=== PATIENT | female | born 1990 | race African-American/Black ===

== ENCOUNTER 2016-11-22 09:34 | Emergency (ER) | payer OTHER | END 2016-11-22 10:04 | disposition home or self-care (01) | LOC: NAV ERS 09:34 | DX: O99.513 Diseases of the respiratory system complicating pregnancy, third trimester (principal); J11.1 Influenza due to unidentified influenza virus with other respiratory manifestations; O16.3 Unspecified maternal hypertension, third trimester; O99.343 Other mental disorders complicating pregnancy, third trimester; F32.9 Major depressive disorder, single episode, unspecified; F41.9 Anxiety disorder, unspecified; Z87.891 Personal history of nicotine dependence; Z3A.30 30 weeks gestation of pregnancy | CPT/HCPCS: 99283 ==

== ENCOUNTER 2017-01-27 20:32 | Emergency (ER) | payer OTHER ==
[2017-01-27 21:33] LABS: Bilirubin Negative (Negative); Blood, Urine Negative (Negative); Clarity Clear (Clear); Glucose, Urine (Dipstick) Negative (Negative); Leukocyte Trace (Negative); Nitrite Negative (Negative); Protein, Urine (Dipstick) Negative (Neg-Trace); Urobilinogen 0.2 mg/dL (0.2-1.0)
[2017-01-27 21:35] LABS: #Basophils 0.1 thou/uL (0.0-0.2); #Eosinphils 0.6 thou/uL (0.0-0.7); #Lymphocytes 2.7 thou/uL (1.20-3.40); #Monocytes 0.6 thou/uL (0.11-0.59); %Basophils 1.1 % (0.0-1.0); %Eosinophils 6.2 % (0.0-10.0); %Lymphocytes 26.5 % (21.0-51.0); %Neutrophils 60.3 % (42.0-75.0); Hemoglobin 13.2 g/dL (12.0-16.0); Mean Corpuscular HGB CONC 33.5 g/dL (32.0-36.0); Mean Corpuscular Hemoglobin 31.9 pg (27.0-31.0); Mean Corpuscular Volume 95.2 fl (81.0-99.0); Mean Platelet Volume 7.9 fL (7.4-10.4); Platelet Count 251 thou/uL (130-400); Red Blood Cell (RBC) Count 4.13 mill/uL (4.20-5.40)
[2017-01-27 21:38] LABS: Pregnancy Test - Urine (BHCG) NEGATIVE (NEGATIVE); Pregu Control Bar Appear? YES (CONTROL BAR)
--- NOTE | 2017-01-27 21:40 | RAD ---
PORTABLE CHEST 01/27/17 HISTORY: Cough. The heart size and mediastinum are within normal limits. The lungs are clear of infiltrates. No sign ificant bony finding. IMPRESSION: No active intrathoracic disease. POS: [facility]
[2017-01-27 21:49] LABS: Bacteria/HPF Rare-Few HPF (None Seen); RBC/HPF None Seen HPF (0-3); WBC/HPF 0-3 HPF (0-3)
[2017-01-27 21:52] LABS: ALT (SGPT) 7 U/L (0-55); AST (SGOT) 14 U/L (5-34); Alkaline Phosphatase 89 U/L (40-150); Anion Gap 15 mmol/L (10-20); BUN (Urea Nitrogen) 11 mg/dL (7.0-18.7); Bilirubin, Total 0.3 mg/dL (0.2-1.2); Calc. Creatinine Clearance 0 mL/min (70-130); Calcium 9.2 mg/dL (7.8-10.44); Carbon Dioxide 23 mmol/L (22-29); Chloride 104 mmol/L (98-107); Estimated GFR-MDRD 59; Globulin 3.4 g/dL (2.4-3.5); Glucose 96 mg/dL (70-105); Potassium 3.4 mmol/L (3.5-5.1); Protein, Total 7.4 g/dL (6.0-8.3); Sodium 139 mmol/L (136-145)
[2017-01-27] MEDS ORDERED: Sodium Chloride 0.9% 1,000 ML ONE (22:00)
[2017-01-27] MEDS ORDERED: Ketorolac Tromethamine 30 MG/ML VIAL ONE (22:14)
[2017-01-27] MEDS ORDERED: Doxycycline 100 MG CAP ONE (22:52)
[2017-01-28 22:07] LABS: Chlamydia by PCR Not Detected (NotDetected); GC by PCR Not Detected (NotDetected)
== END 2017-01-27 23:05 | disposition home or self-care (01) ==
LOC: NAV ERS 20:32
DX: J01.90 Acute sinusitis, unspecified (principal); E86.0 Dehydration; I10 Essential (primary) hypertension; G43.909 Migraine, unspecified, not intractable, without status migrainosus; F41.9 Anxiety disorder, unspecified; F32.9 Major depressive disorder, single episode, unspecified; F17.210 Nicotine dependence, cigarettes, uncomplicated; Z79.899 Other long term (current) drug therapy
CPT/HCPCS: 36415; 71010; 80053; 81003; 81015; 81025; 85025; 87491; 87591; 96374; J1885; J7050

== ENCOUNTER 2017-04-05 12:40 | Emergency (ER) | payer OTHER, SELFPAY ==
[2017-04-05] MEDS ORDERED: diphenhydrAMINE HCl 50 MG/ML 1 ML VIAL ONE (13:02)
[2017-04-05] MEDS ORDERED: Lorazepam 2 MG/ML VIAL ONE ×2 (13:20→13:58)
[2017-04-05 13:25] LABS: Bilirubin Negative (Negative); Blood, Urine Trace (Negative); Clarity Clear (Clear); Glucose, Urine (Dipstick) Negative (Negative); Leukocyte Negative (Negative); Nitrite Negative (Negative); Protein, Urine (Dipstick) Trace mg/dL (Neg-Trace); Urobilinogen 0.2 mg/dL (0.2-1.0)
[2017-04-05 13:41] LABS: ALT (SGPT) 9 U/L (8-55); AST (SGOT) 24 U/L (5-34); Albumin 4.7 g/dL (3.5-5.0); Alkaline Phosphatase 92 U/L (40-150); Anion Gap 19 mmol/L (10-20); BUN (Urea Nitrogen) 15 mg/dL (7.0-18.7); Bilirubin, Total 0.7 mg/dL (0.2-1.2); CK (CPK) 769 U/L (29-168); Calc. Creatinine Clearance 0 mL/min (70-130); Carbon Dioxide 19 mmol/L (22-29); Chloride 101 mmol/L (98-107); Estimated GFR-MDRD 55; Globulin 3.8 g/dL (2.4-3.5); Glucose 95 mg/dL (70-105); Magnesium 2.3 mg/dL (1.6-2.6); Potassium 3.6 mmol/L (3.5-5.1); Protein, Total 8.5 g/dL (6.0-8.3); Sodium 135 mmol/L (136-145)
[2017-04-05 13:43] LABS: Phencyclidine (PCP) Not Detected (NotDetected); THC/Cannabinoid Screen Not Detected (NotDetected)
[2017-04-05 13:44] LABS: Amphetamine Not Detected (NotDetected); Barbiturates Screen Not Detected (NotDetected); Benzodiazepine Screen Not Detected (NotDetected); Cocaine Metabolite Screen Detected (NotDetected); Medtox Control Line Valid? VALID (VALID); Methadone Not Detected (NotDetected); Methamphetamine Not Detected (NotDetected); Opiate Screen Not Detected (NotDetected); Oxycodone Screen Not Detected (NotDetected); Tricyclic Screen Not Detected (NotDetected)
[2017-04-05 13:45] LABS: Bacteria/HPF None Seen HPF (None Seen); RBC/HPF 0-3 HPF (0-3); Squamous Epithelial 0-3 HPF (0-3); WBC/HPF None Seen HPF (0-3)
[2017-04-05 13:46] LABS: Hemoglobin 16.1 g/dL (12.0-16.0); Mean Corpuscular HGB CONC 32.7 g/dL (32.0-36.0); Mean Corpuscular Hemoglobin 29.9 pg (27.0-31.0); Mean Corpuscular Volume 91.4 fl (81.0-99.0); Mean Platelet Volume 8.3 fL (7.4-10.4); Platelet Count 391 thou/uL (130-400); RBC Distribution Width 11.4 % (11.5-14.5); Red Blood Cell (RBC) Count 5.37 mill/uL (4.20-5.40); White Blood Cell (WBC) Count 10.4 thou/uL (4.8-10.8)
[2017-04-05] MEDS ORDERED: Sodium Chloride 0.9% 1,000 ML ONE (13:58)
[2017-04-05 13:59] LABS: Eosinophils 8 % (0-10); Lymphocytes 21 % (21-51); MDiff Complete? YES; Monocytes 7 % (0-10); Neutrophil 63 % (42-75); PLT Morphology Comment Appears Adequate; RBC Morphology Normal
== END 2017-04-05 15:11 | disposition home or self-care (01) ==
LOC: NAV ERS 12:40
DX: E86.0 Dehydration (principal); M60.80 Other myositis, unspecified site; F14.10 Cocaine abuse, uncomplicated; I10 Essential (primary) hypertension; G43.909 Migraine, unspecified, not intractable, without status migrainosus; F17.210 Nicotine dependence, cigarettes, uncomplicated; Z79.899 Other long term (current) drug therapy
CPT/HCPCS: 36415; 80053; 80306; 81003; 81015; 82550; 83735; 84443; 85025; 86140; 96361; 96374; 96375; 96376; J1200; J2060; J7050

== ENCOUNTER 2017-08-28 13:17 | Emergency (ER) | payer SELFPAY ==
[2017-08-28] MEDS ORDERED: Ibuprofen 800 MG TAB ONE (14:22)
[2017-08-28] MEDS ORDERED: Erythromycin Base 0.5% Oint 1 GM TUBE ONE (14:22)
== END 2017-08-28 14:40 | disposition home or self-care (01) ==
LOC: NAV ERS 13:17
DX: H00.012 Hordeolum externum right lower eyelid (principal); I10 Essential (primary) hypertension; G43.909 Migraine, unspecified, not intractable, without status migrainosus; F41.9 Anxiety disorder, unspecified; F32.9 Major depressive disorder, single episode, unspecified; F17.210 Nicotine dependence, cigarettes, uncomplicated; Z79.899 Other long term (current) drug therapy
CPT/HCPCS: 99283

== ENCOUNTER 2017-10-14 20:55 | Emergency (ER) | payer SELFPAY ==
[2017-10-14] MEDS ORDERED: Ketorolac Tromethamine 60 MG/2 ML VIAL ONE (21:13)
== END 2017-10-14 21:30 | disposition home or self-care (01) ==
LOC: NAV ERS 20:55
DX: K02.9 Dental caries, unspecified (principal); I10 Essential (primary) hypertension; G43.909 Migraine, unspecified, not intractable, without status migrainosus; F41.9 Anxiety disorder, unspecified; F32.9 Major depressive disorder, single episode, unspecified; F17.210 Nicotine dependence, cigarettes, uncomplicated; Z79.899 Other long term (current) drug therapy
CPT/HCPCS: 96372; J1885

== ENCOUNTER 2018-02-03 19:10 | Emergency (ER) | payer SELFPAY ==
[2018-02-03] MEDS ORDERED: Metoclopramide HCl 10 MG TAB ONE (19:36)
[2018-02-03] MEDS ORDERED: Acetaminophen 500 MG TAB ONE (19:36)
[2018-02-03] MEDS ORDERED: Ketorolac Tromethamine 60 MG/2 ML VIAL ONE (19:36)
== END 2018-02-03 20:03 | disposition home or self-care (01) ==
LOC: NAV ERS 19:10
DX: G43.909 Migraine, unspecified, not intractable, without status migrainosus (principal); F41.9 Anxiety disorder, unspecified; F32.9 Major depressive disorder, single episode, unspecified; F17.210 Nicotine dependence, cigarettes, uncomplicated
CPT/HCPCS: 96372; J1885

== ENCOUNTER 2019-01-14 13:37 | Emergency (ER) | payer MEDICAID, SELFPAY ==
--- NOTE | 2019-01-14 14:15 | RAD ---
Exam:Left ankle 3 views HISTORY: Pain. Trauma. COMPARISON: None FINDINGS: Ankle mortise is intact. Joint spaces are preserved. No fracture. No significant soft tissu e swelling IMPRESSION: Unremarkable left ankle 3 views
== END 2019-01-14 14:24 | disposition home or self-care (01) ==
LOC: NAV ERS 13:37
DX: S93.402A Sprain of unspecified ligament of left ankle, initial encounter (principal); I10 Essential (primary) hypertension; G43.909 Migraine, unspecified, not intractable, without status migrainosus; F41.9 Anxiety disorder, unspecified; F32.9 Major depressive disorder, single episode, unspecified; F17.210 Nicotine dependence, cigarettes, uncomplicated; W22.8XXA Striking against or struck by other objects, initial encounter

== ENCOUNTER 2019-03-23 19:02 | Emergency (ER) | payer SELFPAY ==
[2019-03-23] MEDS ORDERED: Ketorolac Tromethamine 60 MG/2 ML VIAL ONE (19:38)
[2019-03-23] MEDS ORDERED: Clindamycin 150 MG CAP ONE ×2 (19:38→19:39)
== END 2019-03-23 20:05 | disposition home or self-care (01) ==
LOC: NAV ERS 19:02
DX: K02.9 Dental caries, unspecified (principal); L03.211 Cellulitis of face; I10 Essential (primary) hypertension; G43.909 Migraine, unspecified, not intractable, without status migrainosus; F41.9 Anxiety disorder, unspecified; F32.9 Major depressive disorder, single episode, unspecified; F17.210 Nicotine dependence, cigarettes, uncomplicated
CPT/HCPCS: 96372; J1885

== ENCOUNTER 2019-07-21 14:20 | Emergency (ER) | payer SELFPAY ==
[2019-07-21] MEDS ORDERED: Ketorolac Tromethamine 60 MG/2 ML VIAL ONE (14:48)
[2019-07-21] MEDS ORDERED: Clindamycin 150 MG CAP ONE (14:48)
== END 2019-07-21 15:15 | disposition home or self-care (01) ==
LOC: NAV ERS 14:20
DX: J06.9 Acute upper respiratory infection, unspecified (principal); K08.89 Other specified disorders of teeth and supporting structures; I11.0 Hypertensive heart disease with heart failure; G43.909 Migraine, unspecified, not intractable, without status migrainosus; F32.9 Major depressive disorder, single episode, unspecified; F41.9 Anxiety disorder, unspecified; F17.210 Nicotine dependence, cigarettes, uncomplicated; Z79.899 Other long term (current) drug therapy
CPT/HCPCS: 96372; 99283; J1885

== ENCOUNTER 2020-03-10 11:11 | Emergency (ER) | payer SELFPAY ==
[2020-03-10] MEDS ORDERED: Ketorolac Tromethamine 60 MG/2 ML VIAL ONE (11:43)
== END 2020-03-10 12:05 | disposition home or self-care (01) ==
LOC: NAV ERS 11:11
DX: K03.81 Cracked tooth (principal); K02.9 Dental caries, unspecified; I10 Essential (primary) hypertension; G43.909 Migraine, unspecified, not intractable, without status migrainosus; F41.9 Anxiety disorder, unspecified; F32.9 Major depressive disorder, single episode, unspecified; F17.210 Nicotine dependence, cigarettes, uncomplicated
CPT/HCPCS: 96372; 99283; J1885

== ENCOUNTER 2020-07-01 08:14 | Emergency (ER) | payer SELFPAY ==
[2020-07-01] MEDS ORDERED: Ibuprofen 200 MG TAB ONE (09:18)
== END 2020-07-01 09:20 | disposition home or self-care (01) ==
LOC: NAV ERS 08:14
DX: M26.601 Right temporomandibular joint disorder, unspecified (principal); I10 Essential (primary) hypertension; G43.909 Migraine, unspecified, not intractable, without status migrainosus; F17.210 Nicotine dependence, cigarettes, uncomplicated; F41.9 Anxiety disorder, unspecified; F32.9 Major depressive disorder, single episode, unspecified
CPT/HCPCS: 99283

== ENCOUNTER 2020-09-14 09:08 | Emergency (ER) | payer SELFPAY | END 2020-09-14 09:53 | disposition home or self-care (01) | LOC: NAV ERS 09:08 | DX: S76.911A Strain of unspecified muscles, fascia and tendons at thigh level, right thigh, initial encounter (principal); I10 Essential (primary) hypertension; G43.909 Migraine, unspecified, not intractable, without status migrainosus; F17.210 Nicotine dependence, cigarettes, uncomplicated; X58.XXXA Exposure to other specified factors, initial encounter | CPT/HCPCS: 99281 ==

== ENCOUNTER 2021-06-09 06:39 | Emergency (ER) | payer SELFPAY ==
[2021-06-09] MEDS ORDERED: Ketorolac Tromethamine 30 MG/ML VIAL ONE (07:32)
[2021-06-09] MEDS ORDERED: HYDROcodone/Acetaminophen 5/325 mg Tablet ONE (07:37)
== END 2021-06-09 07:47 | disposition home or self-care (01) ==
LOC: NAV ERS 06:39
DX: K02.9 Dental caries, unspecified (principal); I10 Essential (primary) hypertension; F17.210 Nicotine dependence, cigarettes, uncomplicated
CPT/HCPCS: 96372; 99282; J1885

== ENCOUNTER 2021-06-09 20:38 | Emergency (ER) | payer SELFPAY | END 2021-06-09 22:13 | disposition left against medical advice (07) | LOC: NAV ERS 20:38 | DX: Z53.21 Procedure and treatment not carried out due to patient leaving prior to being seen by health care provider (principal) ==

== ENCOUNTER 2021-06-10 13:43 | Emergency (ER) | payer SELFPAY ==
[2021-06-10] MEDS ORDERED: HYDROcodone/Acetaminophen 5/325 mg Tablet ONE (14:09)
== END 2021-06-10 14:23 | disposition home or self-care (01) ==
LOC: NAV ERS 13:43
DX: K02.9 Dental caries, unspecified (principal); K03.81 Cracked tooth; I10 Essential (primary) hypertension; F17.210 Nicotine dependence, cigarettes, uncomplicated
CPT/HCPCS: 99283

== ENCOUNTER 2021-07-11 07:52 | Emergency (ER) | payer SELFPAY ==
[2021-07-11 14:55] LABS: SARS-CoV-2 PCR by NAA Not Detected (NotDetected)
== END 2021-07-11 08:19 | disposition home or self-care (01) ==
LOC: NAV ERS 07:52
DX: R09.89 Other specified symptoms and signs involving the circulatory and respiratory systems (principal); R52 Pain, unspecified; Z20.822 Contact with and (suspected) exposure to COVID-19; F17.210 Nicotine dependence, cigarettes, uncomplicated; I10 Essential (primary) hypertension
CPT/HCPCS: 99283; U0003; U0005

== ENCOUNTER 2021-07-18 09:42 | Emergency (ER) | payer SELFPAY ==
[2021-07-18] MEDS ORDERED: Sodium Chloride 0.9% 1,000 ML ONE ×2 (10:10→11:00)
[2021-07-18] MEDS ORDERED: Ondansetron PF 4 MG/2 ML Vial ONE (10:10)
[2021-07-18] MEDS ORDERED: diphenhydrAMINE 50 MG/ML VIAL ONE (10:31)
[2021-07-18] MEDS ORDERED: Metoclopramide HCl 10 MG/2 ML VIAL ONE ×2 (10:31→14:52)
[2021-07-18 10:40] LABS: ALT (SGPT) 11 U/L (8-55); AST (SGOT) 16 U/L (5-34); Albumin 4.6 g/dL (3.5-5.0); Alkaline Phosphatase 90 U/L (40-110); Anion Gap 19 mmol/L (10-20); BUN (Urea Nitrogen) 14 mg/dL (7.0-18.7); Bilirubin, Total 0.6 mg/dL (0.2-1.2); Calc. Creatinine Clearance 0 mL/min (70-130); Calcium 10.6 mg/dL (7.8-10.44); Carbon Dioxide 25 mmol/L (22-29); Chloride 97 mmol/L (98-107); Glucose 109 mg/dL (70-105); Protein, Total 8.6 g/dL (6.0-8.3); Sodium 138 mmol/L (136-145)
[2021-07-18 10:51] LABS: Potassium 2.8 mmol/L (3.5-5.1)
[2021-07-18] MEDS ORDERED: Potassium Chloride 10 MEQ/100 ML PREMIX BAG ONE (10:52)
[2021-07-18] MEDS ORDERED: Potassium Chloride 20 MEQ TAB ONE (10:52)
[2021-07-18 10:57] LABS: Hemoglobin 17.4 g/dL (12.0-16.0); Lymphocytes 36 % (21-51); MDiff Complete? YES; Mean Corpuscular HGB CONC 34.1 g/dL (32.0-36.0); Mean Corpuscular Hemoglobin 31.9 pg (27.0-31.0); Mean Corpuscular Volume 93.5 fL (78.0-98.0); Mean Platelet Volume 7.6 fL (7.4-10.4); Monocytes 4 % (0-10); Neutrophil 60 % (42-75); Platelet Count 390 thou/uL (130-400); Platelet Morphology Comment Appears Adequate; RBC Distribution Width 11.1 % (11.5-14.5); Red Blood Cell (RBC) Count 5.46 mill/uL (4.20-5.40); White Blood Cell (WBC) Count 11.7 thou/uL (4.8-10.8)
[2021-07-18] MEDS ORDERED: Lorazepam 2 MG/ML VIAL ONE (11:04)
[2021-07-18 13:31] LABS: Lactic Acid 1.4 mmol/L (0.5-2.2)
[2021-07-18 14:21] LABS: Bilirubin Negative (Negative); Blood, Urine Negative (Negative); Clarity Slightly Cloudy (Clear); Glucose, Urine (Dipstick) Negative (Negative); Ketone, Urine Negative (Negative); Leukocyte Small (Negative); Nitrite Negative (Negative); Protein, Urine (Dipstick) Negative (Neg-Trace); Specific Gravity, Urine 1.015 (1.005-1.030); Urobilinogen 0.2 mg/dL (Less than 2)
[2021-07-18 14:32] LABS: RBC/HPF 0-3 HPF (0-3)
[2021-07-18 14:33] LABS: Bacteria/HPF Rare-Few HPF (None Seen); Trichomonas/HPF Rare HPF (None Seen)
[2021-07-18 15:01] LABS: Potassium 3.9 mmol/L (3.5-5.1)
[2021-07-19 12:30] LABS: SARS-CoV-2 PCR by NAA Not Detected (NotDetected)
== END 2021-07-18 15:40 | disposition home or self-care (01) ==
LOC: NAV ERS 09:42
DX: E86.0 Dehydration (principal); E87.6 Hypokalemia; A59.9 Trichomoniasis, unspecified; R11.2 Nausea with vomiting, unspecified; G43.909 Migraine, unspecified, not intractable, without status migrainosus; Z20.822 Contact with and (suspected) exposure to COVID-19; I10 Essential (primary) hypertension; F17.210 Nicotine dependence, cigarettes, uncomplicated
CPT/HCPCS: 36415; 71045; 80053; 81003; 81015; 83605; 85025; 96365; 96366; 96367; 96375; J1200; J2060; J2405; J2765; J3480; J7050; U0003; U0005

== ENCOUNTER 2021-07-30 08:21 | Emergency (ER) | payer SELFPAY | END 2021-07-30 09:00 | disposition home or self-care (01) | LOC: NAV ERS 08:21 | DX: J06.9 Acute upper respiratory infection, unspecified (principal); G43.909 Migraine, unspecified, not intractable, without status migrainosus; F17.210 Nicotine dependence, cigarettes, uncomplicated; Z79.899 Other long term (current) drug therapy | CPT/HCPCS: 99283 ==

== ENCOUNTER 2021-09-07 09:39 | Emergency (ER) | payer SELFPAY ==
[2021-09-07] MEDS ORDERED: Clindamycin 150 MG CAP ONE (10:02)
== END 2021-09-07 10:14 | disposition home or self-care (01) ==
LOC: NAV ERS 09:39
DX: J36 Peritonsillar abscess (principal); I10 Essential (primary) hypertension; G43.909 Migraine, unspecified, not intractable, without status migrainosus; F17.210 Nicotine dependence, cigarettes, uncomplicated
CPT/HCPCS: 99282

== ENCOUNTER 2021-09-08 13:11 | Emergency (ER) | payer SELFPAY | END 2021-09-08 13:23 | disposition left against medical advice (07) | LOC: NAV ERS 13:11 | DX: I88.9 Nonspecific lymphadenitis, unspecified (principal); I10 Essential (primary) hypertension; F17.210 Nicotine dependence, cigarettes, uncomplicated; Z79.899 Other long term (current) drug therapy ==

== ENCOUNTER 2021-10-16 08:26 | Emergency (ER) | payer BC, SELFPAY | END 2021-10-16 09:40 | disposition home or self-care (01) | LOC: NAV ERS 08:26 | DX: S93.401A Sprain of unspecified ligament of right ankle, initial encounter (principal); I10 Essential (primary) hypertension; G43.909 Migraine, unspecified, not intractable, without status migrainosus; F17.210 Nicotine dependence, cigarettes, uncomplicated; W18.40XA Slipping, tripping and stumbling without falling, unspecified, initial encounter | CPT/HCPCS: 99283 ==

== ENCOUNTER 2021-10-29 09:45 | Emergency (ER) | payer BC ==
[2021-10-29] MEDS ORDERED: Ibuprofen 200 MG TAB ONE (10:52)
== END 2021-10-29 10:58 | disposition home or self-care (01) ==
LOC: NAV ERS 09:45
DX: S29.011A Strain of muscle and tendon of front wall of thorax, initial encounter (principal); I10 Essential (primary) hypertension; F17.210 Nicotine dependence, cigarettes, uncomplicated
CPT/HCPCS: 93005

== ENCOUNTER 2021-12-15 17:16 | Emergency (ER) | payer OTHER, SELFPAY ==
[2021-12-15] MEDS ORDERED: Ibuprofen 800 MG TAB ONE (17:34)
== END 2021-12-15 17:48 | disposition home or self-care (01) ==
LOC: NAV ERS 17:16
DX: S40.022A Contusion of left upper arm, initial encounter (principal); S20.219A Contusion of unspecified front wall of thorax, initial encounter; S80.12XA Contusion of left lower leg, initial encounter; F17.210 Nicotine dependence, cigarettes, uncomplicated; E66.9 Obesity, unspecified; V59.9XXA Occupant (driver) (passenger) of pick-up truck or van injured in unspecified traffic accident, initial encounter; Z68.45 Body mass index [BMI] 70 or greater, adult
CPT/HCPCS: 99283

== ENCOUNTER 2021-12-17 13:35 | Emergency (ER) | payer BC, OTHER, SELFPAY | END 2021-12-17 14:59 | disposition home or self-care (01) | LOC: NAV ERS 13:35 | DX: S93.402A Sprain of unspecified ligament of left ankle, initial encounter (principal); S40.012A Contusion of left shoulder, initial encounter; S80.12XA Contusion of left lower leg, initial encounter; G93.2 Benign intracranial hypertension; F17.210 Nicotine dependence, cigarettes, uncomplicated; V43.52XA Car driver injured in collision with other type car in traffic accident, initial encounter ==

== ENCOUNTER 2022-01-29 20:31 | Emergency (ER) | payer OTHER, BC ==
[2022-01-29] MEDS ORDERED: Ketorolac Tromethamine 60 MG/2 ML VIAL ONE (21:32)
== END 2022-01-29 21:54 | disposition home or self-care (01) ==
LOC: NAV ERS 20:31
DX: M62.830 Muscle spasm of back (principal); M79.662 Pain in left lower leg; G43.909 Migraine, unspecified, not intractable, without status migrainosus; V89.2XXA Person injured in unspecified motor-vehicle accident, traffic, initial encounter
CPT/HCPCS: 96372; 99283; J1885

== ENCOUNTER 2022-03-01 09:51 | Emergency (ER) | payer BC ==
[2022-03-01] MEDS ORDERED: traMADol HCl 50 MG TAB ONE (11:24)
== END 2022-03-01 12:18 | disposition home or self-care (01) ==
LOC: NAV ERS 09:51
DX: G93.2 Benign intracranial hypertension (principal); M54.50 Low back pain, unspecified; F17.210 Nicotine dependence, cigarettes, uncomplicated; E66.01 Morbid (severe) obesity due to excess calories; Z68.45 Body mass index [BMI] 70 or greater, adult
CPT/HCPCS: 99283

== ENCOUNTER 2022-03-03 19:13 | Emergency (ER) | payer BC ==
[2022-03-03] MEDS ORDERED: traMADol HCl 50 MG TAB ONE (19:45)
[2022-03-03] MEDS ORDERED: Metoprolol Tartrate 50 MG TAB ONE (20:09)
[2022-03-03] MEDS ORDERED: Ondansetron ODT 4 MG TAB ONE (20:09)
[2022-03-03 20:15] LABS: Clarity Clear (Clear)
[2022-03-03 20:16] LABS: Bilirubin Negative (Negative); Blood, Urine Negative (Negative); Glucose, Urine (Dipstick) Negative (Negative); Ketone, Urine Negative (Negative); Leukocyte Trace (Negative); Nitrite Negative (Negative); Protein, Urine (Dipstick) Negative (Neg-Trace); Urobilinogen 0.2 mg/dL (Less than 2)
[2022-03-03 20:20] LABS: #Basophils 0.1 thou/uL (0.0-0.2); #Eosinphils 0.2 thou/uL (0.0-0.7); #Lymphocytes 2.5 thou/uL (1.20-3.40); #Monocytes 0.5 thou/uL (0.11-0.59); #Neutrophils 6.7 thou/uL (1.40-6.50); %Basophils 0.8 % (0.0-1.0); %Eosinophils 2.2 % (0.0-10.0); %Lymphocytes 25.1 % (21.0-51.0); %Monocytes 5.1 % (0.0-10.0); %Neutrophils 66.9 % (42.0-75.0); Mean Corpuscular HGB CONC 32.9 g/dL (32.0-36.0); Mean Corpuscular Hemoglobin 31.9 pg (27.0-31.0); Mean Corpuscular Volume 96.9 fL (78.0-98.0); Mean Platelet Volume 8.4 fL (7.4-10.4); Platelet Count 326 thou/uL (130-400); RBC Distribution Width 12.1 % (11.5-14.5); Red Blood Cell (RBC) Count 4.09 mill/uL (4.20-5.40)
[2022-03-03 20:23] LABS: Amphetamine Not Detected (NotDetected); Cocaine Metabolite Screen Not Detected (NotDetected); Methamphetamine Not Detected (NotDetected); Opiate Screen Not Detected (NotDetected); Phencyclidine (PCP) Not Detected (NotDetected); THC/Cannabinoid Screen Detected (NotDetected)
[2022-03-03 20:24] LABS: Barbiturates Screen Not Detected (NotDetected); Benzodiazepine Screen Not Detected (NotDetected); Medtox Control Line Valid? VALID (VALID); Methadone Not Detected (NotDetected); Oxycodone Screen Not Detected (NotDetected); Tricyclic Screen Not Detected (NotDetected)
[2022-03-03 20:25] LABS: ALT (SGPT) 12 U/L (8-55); AST (SGOT) 13 U/L (5-34); Albumin 3.7 g/dL (3.5-5.0); Alkaline Phosphatase 65 U/L (40-110); Anion Gap 14 mmol/L (10-20); BUN (Urea Nitrogen) 8 mg/dL (7.0-18.7); Bilirubin, Total 0.3 mg/dL (0.2-1.2); Calc. Creatinine Clearance 0 mL/min (70-130); Calcium 8.9 mg/dL (7.8-10.44); Carbon Dioxide 26 mmol/L (22-29); Chloride 104 mmol/L (98-107); Globulin 2.7 g/dL (2.4-3.5); Glucose 103 mg/dL (70-105); Protein, Total 6.4 g/dL (6.0-8.3); Sodium 140 mmol/L (136-145)
[2022-03-03 20:31] LABS: Bacteria/HPF 1+ HPF (None Seen); RBC/HPF 0-3 HPF (0-3)
[2022-03-03 21:24] LABS: SARS-CoV-2 NAA Rapid Test Not Detected (NotDetected)
[2022-03-03] MEDS ORDERED: Morphine 4 MG/ML VIAL ONE (22:25)
[2022-03-04] MEDS ORDERED: Morphine 4 MG/ML VIAL ONE ×2 (03:47→09:48)
[2022-03-04] MEDS ORDERED: Topiramate 25 MG TAB PO SCH ×4 (04:00→21:00)
[2022-03-04] MEDS ORDERED: Ondansetron PF 4 MG/2 ML Vial ONE ×2 (09:48→14:07)
[2022-03-04] MEDS ORDERED: Furosemide 40 MG TAB ONE (09:48)
[2022-03-04] MEDS ORDERED: Venlafaxine HCl 25 MG TAB ONE (09:48)
[2022-03-04] MEDS ORDERED: Metoprolol Tartrate 25 MG TAB ONE (09:48)
[2022-03-04] MEDS ORDERED: Meloxicam 7.5 MG TAB PO PRN (10:19)
[2022-03-04] MEDS ORDERED: AcetaZOLAMIDE 250 MG TAB PO SCH (11:45)
[2022-03-04] MEDS ORDERED: Acetaminophen 325 MG TAB ONE ×2 (11:49→20:50)
[2022-03-04] MEDS ORDERED: Promethazine HCl 25 MG/ML VIAL ONE (16:07)
[2022-03-04] MEDS ORDERED: Sodium Chloride 0.9% 100 ML ONE (16:08)
[2022-03-04] MEDS ORDERED: Metoprolol Tartrate 50 MG TAB ONE (20:03)
[2022-03-05] MEDS ORDERED: AcetaZOLAMIDE 250 MG TAB PO SCH (09:00)
== END 2022-03-05 12:35 | disposition short-term general hospital (02) ==
LOC: NAV ERS 19:13
DX: G93.2 Benign intracranial hypertension (principal); I10 Essential (primary) hypertension; M54.2 Cervicalgia; M54.6 Pain in thoracic spine; E66.01 Morbid (severe) obesity due to excess calories; F17.210 Nicotine dependence, cigarettes, uncomplicated; Z20.822 Contact with and (suspected) exposure to COVID-19; Z79.899 Other long term (current) drug therapy
CPT/HCPCS: 70450; 80053; 80306; 81003; 81015; 85025; 96365; 96367; 96375; 96376; J2270; J2405; J2550; Q0162; U0002

== ENCOUNTER 2022-03-24 15:49 | Emergency (ER) | payer BC ==
[2022-03-24 16:57] LABS: #Basophils 0.1 thou/uL (0.0-0.2); #Eosinphils 0.3 thou/uL (0.0-0.7); #Monocytes 0.5 thou/uL (0.11-0.59); #Neutrophils 8.1 thou/uL (1.40-6.50); %Basophils 0.8 % (0.0-1.0); %Eosinophils 3.1 % (0.0-10.0); %Monocytes 4.8 % (0.0-10.0); %Neutrophils 73.3 % (42.0-75.0); Hemoglobin 10.9 g/dL (12.0-16.0); Mean Corpuscular Hemoglobin 31.2 pg (27.0-31.0); Mean Platelet Volume 8.1 fL (7.4-10.4); Platelet Count 273 thou/uL (130-400); RBC Distribution Width 12.9 % (11.5-14.5); Red Blood Cell (RBC) Count 3.51 mill/uL (4.20-5.40)
[2022-03-24] MEDS ORDERED: Ondansetron PF 4 MG/2 ML Vial ONE (17:01)
[2022-03-24 17:09] LABS: ALT (SGPT) 16 U/L (8-55); AST (SGOT) 20 U/L (5-34); Albumin 3.8 g/dL (3.5-5.0); Alkaline Phosphatase 64 U/L (40-110); Anion Gap 15 mmol/L (10-20); BUN (Urea Nitrogen) 11 mg/dL (7.0-18.7); Bilirubin, Total 0.2 mg/dL (0.2-1.2); Calc. Creatinine Clearance 0 mL/min (70-130); Calcium 9.1 mg/dL (7.8-10.44); Carbon Dioxide 22 mmol/L (22-29); Chloride 109 mmol/L (98-107); Globulin 2.8 g/dL (2.4-3.5); Glucose 92 mg/dL (70-105); Potassium 4.3 mmol/L (3.5-5.1); Protein, Total 6.6 g/dL (6.0-8.3); Sodium 142 mmol/L (136-145)
[2022-03-24] MEDS ORDERED: Fentanyl 100 MCG/2 ML VIAL ONE ×2 (17:31→19:17)
[2022-03-24] MEDS ORDERED: Sodium Chloride 0.9% 100 ML ONE (20:03)
[2022-03-24] MEDS ORDERED: Prochlorperazine 10 MG/2 ML VIAL ONE (20:03)
[2022-03-24] MEDS ORDERED: diphenhydrAMINE 50 MG/ML VIAL ONE (20:03)
[2022-03-25 02:28] LABS: SARS-CoV-2 NAA Rapid Test Not Detected (NotDetected)
[2022-03-25] MEDS ORDERED: Prochlorperazine 10 MG/2 ML VIAL ONE (05:00)
[2022-03-25] MEDS ORDERED: diphenhydrAMINE 50 MG/ML VIAL ONE (05:00)
[2022-03-25] MEDS ORDERED: Sodium Chloride 0.9% 100 ML ONE (05:00)
== END 2022-03-25 05:48 | disposition home or self-care (01) ==
LOC: NAV ERS 15:49
DX: R51.9 Headache, unspecified (principal); Z20.822 Contact with and (suspected) exposure to COVID-19; I10 Essential (primary) hypertension; F17.210 Nicotine dependence, cigarettes, uncomplicated; Z79.899 Other long term (current) drug therapy
CPT/HCPCS: 70450; 80053; 85025; 96365; 96375; 96376; J0780; J1200; J2405; J3010; U0002

== ENCOUNTER 2022-03-29 16:54 | Emergency (ER) | payer BC ==
[2022-03-29] MEDS ORDERED: Sodium Chloride 0.9% 1,000 ML ONE (17:26)
[2022-03-29 17:36] LABS: #Basophils 0.1 thou/uL (0.0-0.2); #Eosinphils 0.3 thou/uL (0.0-0.7); #Lymphocytes 1.5 thou/uL (1.20-3.40); #Monocytes 0.7 thou/uL (0.11-0.59); #Neutrophils 10.4 thou/uL (1.40-6.50); %Basophils 0.5 % (0.0-1.0); %Eosinophils 2.1 % (0.0-10.0); %Lymphocytes 11.6 % (21.0-51.0); %Monocytes 5.5 % (0.0-10.0); %Neutrophils 80.3 % (42.0-75.0); Hemoglobin 16.2 g/dL (12.0-16.0); Mean Corpuscular HGB CONC 30.8 g/dL (32.0-36.0); Mean Corpuscular Hemoglobin 30.7 pg (27.0-31.0); Mean Platelet Volume 8.5 fL (7.4-10.4); Platelet Count 459 thou/uL (130-400); Red Blood Cell (RBC) Count 5.27 mill/uL (4.20-5.40); White Blood Cell (WBC) Count 12.9 thou/uL (4.8-10.8)
[2022-03-29 17:52] LABS: ALT (SGPT) 13 U/L (8-55); AST (SGOT) 13 U/L (5-34); Alkaline Phosphatase 101 U/L (40-110); Anion Gap 19 mmol/L (10-20); BUN (Urea Nitrogen) 18 mg/dL (7.0-18.7); Bilirubin, Total 0.6 mg/dL (0.2-1.2); CK (CPK) 103 U/L (29-168); Calc. Creatinine Clearance 0 mL/min (70-130); Calcium 11.4 mg/dL (7.8-10.44); Carbon Dioxide 17 mmol/L (22-29); Chloride 103 mmol/L (98-107); Glucose 122 mg/dL (70-105); Lipase 42 U/L (8-78); Potassium 3.9 mmol/L (3.5-5.1); Sodium 135 mmol/L (136-145)
[2022-03-29 17:55] LABS: Magnesium 1.9 mg/dL (1.6-2.6)
[2022-03-29] MEDS ORDERED: Morphine 4 MG/ML VIAL ONE (18:02)
[2022-03-29] MEDS ORDERED: Ondansetron PF 4 MG/2 ML Vial ONE (18:02)
== END 2022-03-29 19:18 | disposition home or self-care (01) ==
LOC: NAV ERS 16:54
DX: E86.0 Dehydration (principal); R51.9 Headache, unspecified; R19.7 Diarrhea, unspecified; F17.210 Nicotine dependence, cigarettes, uncomplicated; I10 Essential (primary) hypertension
CPT/HCPCS: 70450; 74176; 80053; 82550; 83690; 83735; 85025; 94760; 96361; 96374; 96375; J2270; J2405; J7050

== ENCOUNTER 2022-06-02 08:04 | Emergency (ER) | payer BC | END 2022-06-02 08:23 | disposition home or self-care (01) | LOC: NAV ERS 08:04 | DX: K13.0 Diseases of lips (principal); I10 Essential (primary) hypertension; F17.210 Nicotine dependence, cigarettes, uncomplicated | CPT/HCPCS: 99282 ==

== ENCOUNTER 2023-05-07 12:47 | Emergency (ER) | payer BC, SELFPAY ==
[2023-05-07] MEDS ORDERED: Ketorolac Tromethamine 60 MG/2 ML VIAL ONE (13:36)
[2023-05-07] MEDS ORDERED: Tetracaine 0.5% PF 4 ML BOT ONE (13:36)
[2023-05-07] MEDS ORDERED: Fluorescein Opthalmic Strip ONE (13:36)
[2023-05-07] MEDS ORDERED: Sodium Chloride 0.9% 1,000 ML ONE (13:47)
== END 2023-05-07 14:17 | disposition home or self-care (01) ==
LOC: NAV ERS 12:47
DX: H10.9 Unspecified conjunctivitis (principal); K08.89 Other specified disorders of teeth and supporting structures; I10 Essential (primary) hypertension; F17.210 Nicotine dependence, cigarettes, uncomplicated
CPT/HCPCS: 96372; 99283; J1885; J7050

== ENCOUNTER 2023-06-07 19:09 | Emergency (ER) | payer OTHER ==
[2023-06-07] MEDS ORDERED: Clindamycin 150 MG CAP ONE (19:30)
[2023-06-07] MEDS ORDERED: traMADol HCl 50 MG TAB ONE (19:30)
[2023-06-07] MEDS ORDERED: Tetracaine 0.5% PF 4 ML BOT ONE (19:30)
== END 2023-06-07 19:36 | disposition home or self-care (01) ==
LOC: NAV ERS 19:09
DX: H65.92 Unspecified nonsuppurative otitis media, left ear (principal); I10 Essential (primary) hypertension; F17.210 Nicotine dependence, cigarettes, uncomplicated
CPT/HCPCS: 99282

== ENCOUNTER 2023-07-10 04:35 | Emergency (ER) | payer OTHER ==
[2023-07-10] MEDS ORDERED: ALPRAZolam 0.5 MG TAB ONE (05:01)
== END 2023-07-10 06:13 | disposition home or self-care (01) ==
LOC: NAV ERS 04:35
DX: F41.0 Panic disorder [episodic paroxysmal anxiety] (principal); F17.210 Nicotine dependence, cigarettes, uncomplicated; I10 Essential (primary) hypertension
CPT/HCPCS: 99283

== ENCOUNTER 2023-08-05 20:42 | Emergency (ER) | payer OTHER | END 2023-08-05 21:35 | disposition home or self-care (01) | LOC: NAV ERS 20:42 | DX: E11.65 Type 2 diabetes mellitus with hyperglycemia (principal); I10 Essential (primary) hypertension; F17.210 Nicotine dependence, cigarettes, uncomplicated | CPT/HCPCS: 36416; 99284 ==

== ENCOUNTER 2023-08-27 17:16 | Emergency (ER) | payer OTHER ==
[~2023-08-27 17:16] MED LIST: Iopamidol 370 76% 100 ML VIAL ONE
[2023-08-27 18:23] LABS: #Eosinphils 0.3 thou/uL (0.0-0.7); #Lymphocytes 1.8 thou/uL (1.20-3.40); #Monocytes 0.6 thou/uL (0.11-0.59); #Neutrophils 4.5 thou/uL (1.40-6.50); %Basophils 0.7 % (0.0-1.0); %Eosinophils 3.8 % (0.0-10.0); %Lymphocytes 25.4 % (21.0-51.0); %Monocytes 7.9 % (0.0-10.0); %Neutrophils 62.2 % (42.0-75.0); Hematocrit 38.1 % (36.0-47.0); Hemoglobin 12.6 g/dL (12.0-16.0); Mean Corpuscular Hemoglobin 32.1 pg (27.0-31.0); Mean Corpuscular Volume 97.3 fl (78.0-98.0); Mean Platelet Volume 7.4 fL (7.4-10.4); Platelet Count 290 10x3/uL (130-400); RBC Distribution Width 13.6 % (11.5-14.5); Red Blood Cell (RBC) Count 3.91 mill/uL (4.20-5.40); White Blood Cell (WBC) Count 7.2 10x3/uL (4.8-10.8)
[2023-08-27] MEDS ORDERED: Morphine 2 MG/ML VIAL ONE (18:33)
[2023-08-27] MEDS ORDERED: Promethazine HCl 25 MG/ML VIAL ONE (18:33)
[2023-08-27] MEDS ORDERED: Sodium Chloride 0.9% 1,000 ML ONE (18:33)
[2023-08-27 18:41] LABS: ALT (SGPT) 8 U/L (8-55); AST (SGOT) 11 U/L (5-34); Albumin 3.6 g/dL (3.5-5.0); Alkaline Phosphatase 60 U/L (40-110); Anion Gap 12 mmol/L (10-20); BUN (Urea Nitrogen) 17 mg/dL (7.0-18.7); Bilirubin, Total 0.2 mg/dL (0.2-1.2); Calc. Creatinine Clearance 0 mL/min (70-130); Calcium 8.8 mg/dL (7.8-10.44); Carbon Dioxide 25 mmol/L (22-29); Chloride 107 mmol/L (98-107); Estimated GFR 61; Globulin 2.9 g/dL (2.4-3.5); Glucose 81 mg/dL (70-105); Potassium 4.3 mmol/L (3.5-5.1); Protein, Total 6.5 g/dL (6.0-8.3); Sodium 140 mmol/L (136-145)
== END 2023-08-27 19:42 | disposition home or self-care (01) ==
LOC: NAV ERS 17:16
DX: G97.1 Other reaction to spinal and lumbar puncture (principal); F41.9 Anxiety disorder, unspecified; I10 Essential (primary) hypertension; E11.9 Type 2 diabetes mellitus without complications; F17.210 Nicotine dependence, cigarettes, uncomplicated; Z79.84 Long term (current) use of oral hypoglycemic drugs
CPT/HCPCS: 36415; 72132; 80053; 85025; 96374; 96375; J2272; J2550; J7050; Q9967

== ENCOUNTER 2023-12-19 11:18 | Emergency (ER) | payer OTHER ==
[2023-12-19] MEDS ORDERED: Ketorolac Tromethamine 60 MG/2 ML VIAL ONE (12:03)
== END 2023-12-19 12:15 | disposition home or self-care (01) ==
LOC: NAV ERS 11:18
DX: S80.01XA Contusion of right knee, initial encounter (principal); M25.511 Pain in right shoulder; I10 Essential (primary) hypertension; G43.909 Migraine, unspecified, not intractable, without status migrainosus; E11.9 Type 2 diabetes mellitus without complications; F17.210 Nicotine dependence, cigarettes, uncomplicated; W01.0XXA Fall on same level from slipping, tripping and stumbling without subsequent striking against object, initial encounter; Y93.02 Activity, running
CPT/HCPCS: 96372; J1885

== ENCOUNTER 2024-03-17 11:12 | Emergency (ER) | payer OTHER ==
[2024-03-17 11:37] LABS: Bilirubin Negative (Negative); Blood, Urine Trace (Negative); Clarity Clear (Clear); Glucose, Urine (Dipstick) Negative (Negative); Ketone, Urine Negative (Negative); Leukocyte Small (Negative); Nitrite Negative (Negative); Protein, Urine (Dipstick) Negative (Neg-Trace); Urobilinogen 0.2 mg/dL (Less than 2)
[2024-03-17] MEDS ORDERED: Sodium Chloride 0.9% 1,000 ML ONE (11:50)
[2024-03-17] MEDS ORDERED: Ketorolac Tromethamine 30 MG (1 mL) VIAL ONE (11:50)
[2024-03-17 11:52] LABS: Pregnancy Test - Urine (BHCG) Negative (Negative)
[2024-03-17 11:53] LABS: Pregu Control Background? CLEAR/WHITE (CLR/WHITE); Pregu Control Bar Appear? YES (CONTROL BAR)
[2024-03-17 11:59] LABS: CAUTI Indications for Culture Pelvic or flank pain; RBC/HPF 0-3 HPF (0-3); WBC/HPF 0-3 HPF (0-3)
[2024-03-17 12:01] LABS: Bacteria/HPF None Seen HPF (None Seen)
[2024-03-17 12:03] LABS: Urine Culture Reflex No No
[2024-03-17 12:13] LABS: #Eosinphils 0.2 thou/uL (0.0-0.7); #Lymphocytes 1.5 thou/uL (1.20-3.40); #Monocytes 0.4 thou/uL (0.11-0.59); #Neutrophils 5.4 thou/uL (1.40-6.50); %Basophils 0.6 % (0.0-1.0); %Eosinophils 2.1 % (0.0-10.0); %Lymphocytes 19.6 % (21.0-51.0); %Monocytes 5.6 % (0.0-10.0); %Neutrophils 72.1 % (42.0-75.0); Hemoglobin 13.2 g/dL (12.0-16.0); Mean Corpuscular HGB CONC 32.3 g/dL (32.0-36.0); Mean Corpuscular Hemoglobin 30.8 pg (27.0-31.0); Mean Corpuscular Volume 95.3 fl (78.0-98.0); Mean Platelet Volume 7.8 fL (7.4-10.4); Platelet Count 222 10x3/uL (130-400); RBC Distribution Width 11.5 % (11.5-14.5); White Blood Cell (WBC) Count 7.4 10x3/uL (4.8-10.8)
[2024-03-17 12:29] LABS: ALT (SGPT) 12 U/L (8-55); AST (SGOT) 19 U/L (5-34); Alkaline Phosphatase 64 U/L (40-110); Anion Gap 15 mmol/L (10-20); BUN (Urea Nitrogen) 14 mg/dL (7.0-18.7); Bilirubin, Total 0.5 mg/dL (0.2-1.2); Calc. Creatinine Clearance 0 mL/min (70-130); Calcium 9.5 mg/dL (7.8-10.44); Carbon Dioxide 20 mmol/L (22-29); Chloride 106 mmol/L (98-107); Estimated GFR 78; Globulin 3.5 g/dL (2.4-3.5); Glucose 94 mg/dL (70-105); Potassium 3.9 mmol/L (3.5-5.1); Protein, Total 7.5 g/dL (6.0-8.3); Sodium 137 mmol/L (136-145)
== END 2024-03-17 12:53 | disposition home or self-care (01) ==
LOC: NAV ERS 11:12
DX: R10.9 Unspecified abdominal pain (principal); R51.9 Headache, unspecified; Z87.891 Personal history of nicotine dependence
CPT/HCPCS: 80053; 81001; 81025; 85025; 96361; 96374; J1885; J7050

== ENCOUNTER 2024-03-31 11:57 | Outpatient (CLI) | payer MEDICAID, OTHER | END 2024-03-31 11:58 | disposition home or self-care (01) | LOC: NAV RAD 11:57 | PROVIDERS: ATTEND Nurse Practitioner Family | DX: M54.16 Radiculopathy, lumbar region (principal) | CPT/HCPCS: 72100 ==

== ENCOUNTER 2024-04-04 08:45 | Emergency (ER) | payer OTHER | END 2024-04-04 10:49 | disposition home or self-care (01) | LOC: NAV ERS 08:45 | DX: J06.9 Acute upper respiratory infection, unspecified (principal); I10 Essential (primary) hypertension; Z87.891 Personal history of nicotine dependence | CPT/HCPCS: 71046 ==

== ENCOUNTER 2024-04-11 05:25 | Emergency (ER) | payer OTHER ==
[2024-04-11 05:52] LABS: Bilirubin Negative (Negative); Blood, Urine Negative (Negative); Clarity Clear (Clear); Glucose, Urine (Dipstick) Negative (Negative); Ketone, Urine Negative (Negative); Leukocyte Negative (Negative); Nitrite Negative (Negative); Protein, Urine (Dipstick) Negative (Neg-Trace)
[2024-04-11 05:53] LABS: #Eosinphils 0.2 thou/uL (0.0-0.7); #Lymphocytes 1.6 thou/uL (1.20-3.40); #Monocytes 0.4 thou/uL (0.11-0.59); #Neutrophils 4.9 thou/uL (1.40-6.50); %Basophils 0.6 % (0.0-1.0); %Eosinophils 2.4 % (0.0-10.0); %Monocytes 5.9 % (0.0-10.0); Hemoglobin 12.6 g/dL (12.0-16.0); Mean Corpuscular HGB CONC 33.1 g/dL (32.0-36.0); Mean Corpuscular Hemoglobin 30.8 pg (27.0-31.0); Mean Corpuscular Volume 92.9 fl (78.0-98.0); Mean Platelet Volume 7.4 fL (7.4-10.4); Platelet Count 240 10x3/uL (130-400); Pregnancy Test - Urine (BHCG) Negative (Negative); Pregu Control Bar Appear? YES (CONTROL BAR); RBC Distribution Width 11.6 % (11.5-14.5); Red Blood Cell (RBC) Count 4.09 mill/uL (4.20-5.40); White Blood Cell (WBC) Count 7.1 10x3/uL (4.8-10.8)
[2024-04-11 05:54] LABS: Pregu Control Background? CLEAR/WHITE (CLR/WHITE)
[2024-04-11 05:57] LABS: Urine Culture Reflex No No
[2024-04-11 06:02] LABS: Bacteria/HPF Rare-Few HPF (None Seen); CAUTI Indications for Culture Pelvic or flank pain; RBC/HPF None Seen HPF (0-3); WBC/HPF None Seen HPF (0-3)
[2024-04-11 06:08] LABS: ALT (SGPT) 14 U/L (8-55); AST (SGOT) 14 U/L (5-34); Albumin 3.8 g/dL (3.5-5.0); Alkaline Phosphatase 66 U/L (40-110); Anion Gap 11 mmol/L (10-20); BUN (Urea Nitrogen) 20 mg/dL (7.0-18.7); Bilirubin, Total Less than 0.2 mg/dL (0.2-1.2); Calc. Creatinine Clearance 0 mL/min (70-130); Carbon Dioxide 19 mmol/L (22-29); Chloride 111 mmol/L (98-107); Estimated GFR 57; Glucose 94 mg/dL (70-105); Potassium 3.8 mmol/L (3.5-5.1); Protein, Total 6.8 g/dL (6.0-8.3); Sodium 137 mmol/L (136-145)
[2024-04-11] MEDS ORDERED: Ondansetron PF 4 MG/2 ML Vial ONE (06:34)
[2024-04-11] MEDS ORDERED: Morphine 4 MG/ML VIAL ONE (06:34)
[2024-04-11] MEDS ORDERED: Ketorolac Tromethamine 30 MG (1 mL) VIAL ONE ×2 (06:34→07:39)
[2024-04-11] MEDS ORDERED: Dicyclomine 20 MG TAB ONE (07:03)
[2024-04-11] MEDS ORDERED: Sodium Chloride 0.9% 1,000 ML ONE (07:39)
[2024-04-11] MEDS ORDERED: Lorazepam 2 MG/ML VIAL ONE (07:55)
== END 2024-04-11 08:47 | disposition home or self-care (01) ==
LOC: NAV ERS 05:25
DX: R10.31 Right lower quadrant pain (principal); R10.32 Left lower quadrant pain; I10 Essential (primary) hypertension; Z87.891 Personal history of nicotine dependence
CPT/HCPCS: 36415; 80053; 81001; 81025; 85025; 96361; 96374; 96375; 96376; J1885; J2060; J2270; J2405; J7050

== ENCOUNTER 2024-04-20 13:10 | Emergency (ER) | payer OTHER ==
[2024-04-20] MEDS ORDERED: Morphine 4 MG/ML VIAL ONE (14:35)
[2024-04-20] MEDS ORDERED: Ondansetron PF 4 MG/2 ML Vial ONE (14:35)
[2024-04-20 14:51] LABS: #Eosinphils 0.4 thou/uL (0.0-0.7); #Lymphocytes 1.8 thou/uL (1.20-3.40); #Monocytes 0.6 thou/uL (0.11-0.59); #Neutrophils 7.2 thou/uL (1.40-6.50); %Basophils 0.4 % (0.0-1.0); %Eosinophils 4.2 % (0.0-10.0); %Lymphocytes 17.7 % (21.0-51.0); %Monocytes 5.6 % (0.0-10.0); %Neutrophils 72.1 % (42.0-75.0); Hematocrit 37.5 % (36.0-47.0); Hemoglobin 11.9 g/dL (12.0-16.0); Mean Corpuscular HGB CONC 31.8 g/dL (32.0-36.0); Mean Corpuscular Hemoglobin 30.7 pg (27.0-31.0); Mean Corpuscular Volume 96.5 fl (78.0-98.0); Mean Platelet Volume 7.9 fL (7.4-10.4); Platelet Count 229 10x3/uL (130-400); RBC Distribution Width 12.6 % (11.5-14.5); Red Blood Cell (RBC) Count 3.89 mill/uL (4.20-5.40)
[2024-04-20 15:04] LABS: BHCG - Serum Negative (NEGATIVE); Pregs Control Bar Appear? YES (CONTROL BAR)
[2024-04-20 15:07] LABS: ALT (SGPT) 15 U/L (8-55); AST (SGOT) 19 U/L (5-34); Albumin 3.8 g/dL (3.5-5.0); Alkaline Phosphatase 63 U/L (40-110); Anion Gap 14 mmol/L (10-20); BUN (Urea Nitrogen) 17 mg/dL (7.0-18.7); Bilirubin, Total 0.2 mg/dL (0.2-1.2); Calc. Creatinine Clearance 0 mL/min (70-130); Calcium 9.5 mg/dL (7.8-10.44); Carbon Dioxide 20 mmol/L (22-29); Chloride 108 mmol/L (98-107); Estimated GFR 64; Globulin 3.3 g/dL (2.4-3.5); Glucose 79 mg/dL (70-105); Potassium 4.3 mmol/L (3.5-5.1); Protein, Total 7.1 g/dL (6.0-8.3); Sodium 138 mmol/L (136-145)
[2024-04-20] MEDS ORDERED: fentaNYL 50 mcg/mL 1 mL Vial ONE (15:39)
[2024-04-20] MEDS ORDERED: diphenhydrAMINE 50 MG/ML VIAL ONE (16:25)
[2024-04-20] MEDS ORDERED: Prochlorperazine 10 MG/2 ML VIAL ONE (16:25)
[2024-04-20] MEDS ORDERED: Sodium Chloride 0.9% 100 ML ONE (16:25)
[2024-04-20] MEDS ORDERED: Sodium Chloride 0.9% 1,000 ML ONE (16:25)
[2024-04-20] MEDS ORDERED: Lorazepam 2 MG/ML VIAL ONE (17:28)
[2024-04-20] MEDS ORDERED: Promethazine HCl 25 MG/ML VIAL ONE (18:27)
== END 2024-04-20 19:11 | disposition home or self-care (01) ==
LOC: NAV ERS 13:10
DX: R51.9 Headache, unspecified (principal); G89.18 Other acute postprocedural pain; R11.0 Nausea; I10 Essential (primary) hypertension; Z87.891 Personal history of nicotine dependence
CPT/HCPCS: 70450; 75809; 80053; 84703; 85025; 94760; 96374; 96375; J0780; J1200; J2060; J2270; J2405; J2550; J3010; J3490; J7050

== ENCOUNTER 2024-04-29 18:47 | Emergency (ER) | payer OTHER ==
[2024-04-29] MEDS ORDERED: diphenhydrAMINE 50 MG/ML VIAL ONE (19:20)
[2024-04-29] MEDS ORDERED: Sodium Chloride 0.9% 1,000 ML ONE (19:20)
[2024-04-29] MEDS ORDERED: Prochlorperazine 10 MG/2 ML VIAL ONE (19:20)
[2024-04-29] MEDS ORDERED: Lorazepam 2 MG/ML VIAL ONE (19:53)
== END 2024-04-29 21:25 | disposition home or self-care (01) ==
LOC: NAV ERS 18:47
DX: G43.919 Migraine, unspecified, intractable, without status migrainosus (principal); I10 Essential (primary) hypertension; Z87.891 Personal history of nicotine dependence; Z79.899 Other long term (current) drug therapy
CPT/HCPCS: 96374; 96375; J0780; J1200; J2060